=== PATIENT | female | born 1965 | race Caucasian/White ===

== ENCOUNTER → 2019-09-12 | Outpatient (CLI) | payer MEDICARE, MEDICAID | END | disposition home or self-care (01) | LOC: CFH 10:40 | PROVIDERS: ATTEND Nurse Practitioner | DX: Z12.31 Encounter for screening mammogram for malignant neoplasm of breast (principal) | CPT/HCPCS: 77067 ==

== ENCOUNTER 2019-09-17 11:24 | Emergency (ER) | payer MEDICARE, MEDICAID ==
[~2019-09-17] VITALS: Ht 160 cm; Wt 75.0 kg
[2019-09-17] MEDS ORDERED: METHOCARBAMOL 750 MG TABLET ONE (12:20)
[2019-09-17] MEDS ORDERED: KETOROLAC 60 MG/2 ML ONE (12:20)
[2019-09-17] MEDS ORDERED: KETOROLAC 30 MG/1 ML IM ONE (12:30)
[2019-09-17] MEDS ORDERED: METHOCARBAMOL 750 MG TABLET PO ONE (12:30)
[2019-09-17 12:50] VITALS: BP 127/73
--- NOTE | 2019-09-17 13:06 | NUR ---
PT WAS ABLE TO NAVIGATE USING A WALKER. PT AMBULATES WITH WALKER SLOWLY BUT STEADY. PROVIDER MADE AWARE.
== END 2019-09-17 13:47 | disposition home or self-care (01) ==
LOC: ED 13:40
DX: S32.010A Wedge compression fracture of first lumbar vertebra, initial encounter for closed fracture (principal); E78.5 Hyperlipidemia, unspecified; G89.11 Acute pain due to trauma; W01.0XXA Fall on same level from slipping, tripping and stumbling without subsequent striking against object, initial encounter; Y93.89 Activity, other specified; Y92.89 Other specified places as the place of occurrence of the external cause; Y99.8 Other external cause status
CPT/HCPCS: 72110; 96372; 99283; J1885